=== PATIENT | male | born 1970 | race Caucasian/White ===

== ENCOUNTER 2025-05-06 06:28 | Observation (INO) ==
--- NOTE | 2025-04-04 15:26 | PAT Medication Instructions ---
Medication Instructions Date of Service April 04, 2025 Home Medications sertraline 25 mg tablet (Zoloft) 25 mg PO HS Take evening before surgery sertraline 25 mg tablet (Zoloft) 25 mg PO HS MORNING OF SURGERY: NOTHING TO EAT OR DRINK AFTER MIDNIGHT Other Notes If you have any questions please call us at [phone] or [phone] or [phone] or [phone]
--- NOTE | 2025-04-12 08:23 | Anesthesiology Consultation ---
Date of Service April 12, 2025 Assessment & Plan (1) Encounter for pre-operative examination: - PCP office visit 03/25/25 [facility]: "...Feels good. Mood is good on med. Getting left knee replaced next month with Dr. Hancock for ongoing pain...no murmur...Follow Up: Return in about 1 year..." - neuraxial anesthesia concerns: patient states has some hesitation as feels he had a painful injection with left knee arthroscopy in 2011. He is comfortable with ultimate discussion am DOS. We discussed general anesthesia and neuraxial anesthesia-he expresses comfort with anesthesiologist recommendation DOS. - Outpatient joint assessment: Patient is currently scheduled for inpatient pathway. If re-evaluated and patient/surgeon requests outpatient pathway, patient is acceptable candidate for outpatient joint program from anesthesia standpoint pending surgeon's office assessment of pt motivation/support/completion of same day joint program preop requirements. Chart Review Chart Review: Acceptable Risk for Surgery and Patient seen in Pre Admission Testing History Surgery Operation Date: 05/06/25 11:25 Proposed Procedures p Robotic Assisted Left Total Knee Arthroplasty - Boubacar Hancock, DO Height/Weight Height: 5 ft 11 in Weight: 104.1 kg Allergies Allergy/AdvReac Type Severity Reaction Status Date / Time No Known Allergies Allergy Mild Verified 04/04/25 08:41 Medications Home Medications Medication Instructions Recorded Confirmed Last Taken sertraline 25 mg tablet (Zoloft) 25 mg PO HS 10/30/19 04/04/25 Unknown Past Medical History Medical History (Updated 04/12/25 @ 08:25 by Danielle Akers PA-C) Depression History of COVID-19 (2021) resolved History of hepatitis A 1985 History of pneumonia 1985 severe, hospitalized and states "heart stopped", murmur developed after that episode Hx of bronchitis 2022 Hx of cardiac murmur developed after having pneumonia at 14 yrs old (1984). no cardio-states has not been detected since 2006 Osteoarthritis Right hand pain chronic, states has seen specialists without needed intervention Patient denies h/o stroke, seizures, heart attack, heart failure, DM, blood clots/DVTs or blood transfusions. Exercise / Class Metabolic Activity II 4-5 Yardwork/Stairs/Walk up hill (denies chest discomfort or shortness of breath with one flight of stairs) Past Family History Family History Other No family history of adverse response to anesthesia Past Surgical History Surgical History History of nasal surgery reconstructive surgery, childhood nasal fracture History of vasectomy Hx of arthroscopic knee surgery left/right Hx of colonoscopy Hx of wisdom tooth extraction Past Anesthesia History No Hx of Anesthesia Complications and No Family Hx of Anesthesia Complications History of PONV No Hx of PONV and No Hx of Motion Sickness Social History Smoking Status: Never smoker Do You Dip or Chew Tobacco: Yes (advised) Hx Alcohol Use: Yes Alcohol type: beer and hard liquor alcohol intake frequency: a few times a month Hx Substance Use: No substance use type: does not use Review of Systems Snoring, denies witnessed apneas. Patient denies chest pain, shortness of breath, dyspnea on exertion, reflux, fever, chills, cough, wheezing, or palpitations. Physical Exam Vital Signs Vitals BP 112/70 P 73 TEMP 98.2 SP02 95% on RA RESP 18 Physical Patient resting comfortably in chair in no acute distress, alert and oriented, responding appropriately throughout visit Full cervical extension range of motion without pain TMD 3.5 finger breadths Mallampati Score 3 Dentition: one crown, denies chipped or loose teeth, caps, implants or bridges Lungs: normal respiratory effort. Good air movement, clear throughout to auscultation, no adventitious breath sounds Cardiac: regular rate and rhythm, no murmurs noted Carotid arteries: negative bruit bilat Lab Results Anesthesia Preop Results Results Anesthesia Widget: WBC 5.13 K/ul (4.8-10.8) 04/12/25 Hgb 15.3 g/dl (14.0-18.0) 04/12/25 Hct 44.1 % (42.0-52.0) 04/12/25 Plt 240 K/uL (130-400) 04/12/25 Na 137 mmol/L (136-145) 04/12/25 K 4.3 mmol/L (3.5-5.1) 04/12/25 Cl 102 mmol/L (98-107) 04/12/25 CO2 30 mmol/L (21-32) 04/12/25 BUN 20 mg/dl (6-23) 04/12/25 Creat 1.15 mg/dl (0.6-1.4) 04/12/25 Glucose Level 97 mg/dl (70-99(Fasting)) 04/12/25 PT 10.3 Seconds (9.0-12.0) 04/12/25 PTT 29 Seconds (21-31) 04/12/25 INR 0.9 (0.9-1.1) 04/12/25 Blood Type A Positive 04/12/25 Antibody Screen NEGATIVE 04/12/25 Testing Electrocardiogram Date: 04/12/25 NSR, rate 60 bpm Chest X-Ray Date: 04/12/25 No acute findings.
--- NOTE | 2025-05-02 08:01 | History & Physical Report ---
Date of Service May 02, 2025 Assessment & Plan (1) Osteoarthritis of left knee: We will proceed with a left total knee arthroplasty. Postoperatively, he will be started on aspirin for DVT prophylaxis and kept overnight in the hospital for postop medical management. He plans to use [facility] therapy at discharge. History of Present Illness Chief Complaint: Osteoarthritis of the left knee. 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 He has been dealing with chronic worsening left knee pain and instability. I did a left knee arthroscopy on him about 10 years ago. He initially did okay, but unfortunately his knee pain returned. Now, he has a lot of instability of his knee. He says he can only walk a small distance before it starts becoming painful and swollen. I sent him for an MRI. The MRI showed advanced arthritis in the left knee. After failing conservative treatment, he has elected to proceed with a left total knee arthroplasty. 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 no cardio-states has not been detected since 2006 Surgical History Hx of colonoscopy History of vasectomy Hx of arthroscopic knee surgery left/right Hx of wisdom tooth extraction History of nasal surgery reconstructive surgery, childhood nasal fracture Family History Other No family history of adverse response to anesthesia Social History Smoking Status: Never smoker Tobacco Type: Smokeless Tobacco (Dip or Chew) Second Hand Exposure: No; Do You Dip or Chew Tobacco: Yes (advised); Hx Alcohol Use: Yes Alcohol type: beer and hard liquor Hx Substance Use: No Preferred Language: Thai Communication Ability: Effective Hearing Ability: Normal 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 Physical Exam On physical exam of the left knee, he has tenderness palpation of the distal medial femoral condyle and over the medial joint line. He has no deformity.. Constitutional WD/WN, vitals as above Eyes PERRL, conjunctivae normal, anicteric sclerae ENMT external ear and nose normal, oropharynx normal Neck trachea midline, no thyromegaly Respiratory normal respiratory effort Cardiovascular RRR, no murmur, no edema Gastrointestinal (Abdomen) normal bowel sounds, soft, nontender, no hepatosplenomegaly Psychiatric A+Ox3, euthymic affect Results & Data Results & Data Laboratory Results . Diagnostic Findings . PG Care Time/CCT Total # of Minutes Spent Total Time Spent with Patient: Total time spent is greater than 50% in coordination of care (as documented) at patient's floor/unit and/or counseling patient: Coding Level of Care Code None Diagnoses Osteoarthritis of left knee M17.12
[~2025-05-06 06:28] MED LIST: ROPIVACAINE 0.5% 5 MG/ML 30 ML VIAL ONE
--- NOTE | 2025-05-06 06:37 | History & Physical Bridge Note ---
Date of Service May 06, 2025 History & Physical Bridge Note I have examined the patient, reviewed the History & Physical and in the interval since the performance of the History & Physical I have noted the following changes of clinical significance: no changes noted
[2025-05-06] MEDS ORDERED: LIDOCAINE 2% 2 ML VIAL/AMP(20MG/ML) INFIL ONE (06:53)
[2025-05-06] MEDS ORDERED: ONDANSETRON INJ 2 MG/ML 2 ML VIAL ONE (06:53)
[2025-05-06] MEDS ORDERED: MIDAZOLAM HCL 1 MG/ML 2ML VIAL ONE (06:53)
[2025-05-06] MEDS ORDERED: PROPOFOL IV EMULSION 10 MG/ML 20 ML VIAL IV ONE ×3 (06:53→09:25)
[2025-05-06] MEDS: LR 60ML/HR IV SCH (07:01)
[2025-05-06] MEDS ORDERED: ATROPINE SULFATE 0.1 MG/ML 10ML SYR IV PRN (07:08)
[2025-05-06] MEDS ORDERED: PROMETHAZINE HCL 6.25 MG in SODIUM CHLORIDE 0.9% 50 ML IV PRN (07:08)
[2025-05-06] MEDS ORDERED: HYDROmorphone INJ 1 MG/ML SYRINGE IV PRN (07:08)
[2025-05-06] MEDS ORDERED: ONDANSETRON INJ 2 MG/ML 2 ML VIAL IV PRN ×2 (07:08→10:48)
[2025-05-06] MEDS: GABAPENTIN 900 MG DOSE PO SCH (07:10)
[2025-05-06] MEDS: dexAMETHasone**PF** 10 MG/ML VIAL IV SCH (07:10)
[2025-05-06] MEDS: ACETAMINOPHEN 500 MG TAB PO SCH ×2 (07:10→13:47)
[2025-05-06] MEDS: FAMOTIDINE 20 MG TAB PO SCH (07:10)
[2025-05-06] MEDS: TRANEXAMIC ACID 1,000 MG **IV Pre-op IV SCH (07:58)
[2025-05-06] MEDS ORDERED: KETAMINE HCL 10MG/ML SYR ONE (08:18)
[2025-05-06] MEDS ORDERED: PHENYLEPHRINE 100MCG/ML 5ML SYR ONE (08:32)
[2025-05-06] MEDS ORDERED: ePHEDrine sulfate 50 MG/5 ML SYR ONE (08:32)
[2025-05-06] MEDS: ROPIV 0.5% 246mg, Ketorolac 30mg, EPINEPHrine 0.5mg in NSS INFIL SCH (08:55)
[2025-05-06] MEDS: ORTHO JOINT ANESTHETIC ONE (08:55)
--- NOTE | 2025-05-06 09:33 | Operative Report ---
PG Post Operative Report Pre & Post Diagnosis Operation Date: 05/06/25 08:00 Pre-Op Diagnosis: Left Knee Arthritis Post-Op Diagnosis: Left Knee Arthritis I identified the patient and participated in the time-out.: Yes Procedure Operation Date: 05/06/25 08:00 Actual Procedures p Robotic Assisted Left Total Knee Arthroplasty(Left) - Boubacar Hancock DO Surgeon Boubacar Hancock DO [employer] Market Leader Lucero Gurrola PA-C Estimated Blood Loss 30 Findings Consistent with Post-Op Diagnosis Specimens Left femoral and tibial bone Description of Procedure Implants used: I used a Latonia Persona total knee arthroplasty system with a size 10 PS standard femur, F tibia, 32 patella, and a size 10 CPS polyethylene bearing. All components were press-fit into place. Colin arrived [facility] for the above procedure. He was seen in the preoperative holding area and the operative extremity was identified and signed. he was given a preoperative antibiotic, TXA, a spinal anesthetic and an adductor nerve block. He was taken back to the operating room and laid on the table in supine position. He was given basic sedation. The operative knee was then prepped and draped in sterile fashion. A timeout was done, and the patient and the operative extremity was properly identified. A midline incision was made directly over the patella. Dissection was taken down to the extensor mechanism. A medial parapatellar arthrotomy was used. The medial retinaculum was released and the fat pad was mostly excised. The knee wa s flexed and the ACL, PCL, and meniscus were removed. The alignment of the knee replacement was assisted with a Telepo robotic knee. The femoral array was pinned in the distal femur and the tibial array was pinned using a percutaneous technique in the upper shaft of the tibia. The robot was appropriately calibrated and the structure of the knee was mapped out. The components were then manipulated on the screen to account for any malalignment and to assist in gap balancing. Once I was happy with the placement of the components on the screen, a distal femoral cutting guide was brought in place. The distal femur was then resected. The femur measured to be a size 10. A 4-in-1 cutting block was then put into place by the robot and 2 peg holes were drilled. The 4-in-1 cutting block was then impacted into place and anterior, posterior, and chamfer cuts were made. The cutting block was then brought down to the tibia and pinned into place. The proximal tibia was then resected. The posterior aspect of the knee was then opened up and any additional meniscus fragments and osteophytes were removed. The tibia measured to be a size F. The tibial plate was then placed in the appropriate rotation and the tibia was drilled and punched. Trial components were then placed. The patella was then everted and 9 mm was resected off the posterior aspect of the patella. The patella measured to be a size 32. 3 peg holes were then drilled. A trial patella was placed. A size 10 CPS polyethylene insert was then trialed. The knee was brought through a full range of motion and felt to be stable. Trial components were then removed. The surrounding soft tissues were injected with 100 cc of an orthopedic pain control cocktail. All components were then press-fit into place. The final polyethylene insert was then snapped into place. The tourniquet was deflated. Hemostasis was obtained. A dilute betadyne lavage was then done for 3 minutes. The joint was then irrigated with normal saline solution. The medial parapatellar arthrotomy was then closed with #1 Vicryl suture. The skin was closed with 2-0 Vicryl, 3-0V lock suture, and Crystal Zipline. A soft compressive dressing was placed. He was then transferred to a hospital bed and taken to the postanesthesia care unit in stable condition. He tolerated the procedure well. Lucero Gurrola PA-C, was present for the entire procedure. He was critical for patient positioning, prepping, draping, retraction exposure, wound closure and application of sterile dressing. I attest to the content of the Intraoperative Record and any orders documented therein. Any exceptions are noted below.
--- NOTE | 2025-05-06 10:41 | XRay Report ---
XR knee LT 1 or 2V routine HISTORY: 54 years-old Male Surgical Post Op left knee arthroplasty COMPARISON: 09/12/2019 TECHNIQUE: 2 views of the left knee FINDINGS: Total joint arthroplasty with patellar resurfacing. Satisfactory alignment of the hardware with expec aakash postoperative soft tissue swelling and deep tissue air. Possible small bone fragment noted along the medial femoral condyle. IMPRESSION: Satisfactory alignment of the total joint arthroplasty. ACT 112: Negative or not required by law. The above report was generated using voice recognition software. It may contain grammatical, syntax o r spelling errors. Electronically signed by: Cooper Michael M.D. 05/06/2025 10:40 AM
[2025-05-06] MEDS ORDERED: NALOXONE HCL 0.4 MG/1 ML VIAL/CARP IV PRN (10:48)
[2025-05-06] MEDS ORDERED: MAGNESIUM HYDROXIDE SUSP 30 ML UDC PO PRN (10:48)
[2025-05-06] MEDS ORDERED: diphenhydrAMINE Capsule 25 MG CAP PO PRN (10:48)
[2025-05-06] MEDS ORDERED: METOCLOPRAMIDE HCL INJ 5 MG/ML 2 ML VIAL IV PRN (10:48)
--- NOTE | 2025-05-06 10:58 | Anesthesiology Progress Note ---
Date of Service May 06, 2025 Anesthesia Post Procedure Vital Signs Vital Signs: Temp Pulse Pulse Resp BP Pulse Ox O2 Del Method 05/06/25 10:30 36.5 C 68 21 140/89 96 Room Air 05/06/25 10:20 74 17 129/79 98 Room Air 05/06/25 10:10 71 18 114/89 98 Room Air 05/06/25 10:03 36.1 C L 71 16 109/83 97 Room Air 05/06/25 06:36 36.7 C 65 18 130/91 98 Room Air Pain Intensity Left Knee: Pain Intensity: 3 Transfer of Care Handoff Completed per policy Notes Mental Status: alert / awake / arousable and participated in evaluation Patient Amnestic to Procedure: Yes Nausea / Vomiting: adequately controlled Pain: adequately controlled Airway Patency, RR, SpO2: stable & adequate BP & HR: stable & adequate Hydration State: stable & adequate Anesthetic Complications: no major complications apparent and Pt Satisfied with anesthetic care
[2025-05-06] MEDS: KETOROLAC TROMETHAMINE 15 MG/ML VIAL IV SCH (11:48)
[2025-05-06] MEDS: SODIUM CHLORIDE 0.9% 1,000 ML IV SCH (11:51)
[2025-05-06] MEDS: SENNA 8.6 MG TAB PO SCH (20:24)
[2025-05-06] MEDS: DOCUSATE SODIUM 100 MG CAP PO SCH (20:24)
[2025-05-06] MEDS: SERTRALINE HCL 50 MG TABLET PO SCH (20:25)
[2025-05-06] MEDS: ASPIRIN 81 MG ECTAB PO SCH (20:25)
[2025-05-07 07:21] VITALS: PULSE 65; RESP 18; TEMP 97.5; O2SAT 97
[2025-05-07] MEDS: MULTIVITAMIN TAB PO SCH (07:26)
--- NOTE | 2025-05-07 09:33 | Orthopedic Progress Note ---
Date of Service May 07, 2025 Assessment & Plan (1) Status post total left knee replacement: * Continue Current Treatment * Disposition: home * Daily treatment: Physical Therapy/ Occupational Therapy per protocol * Weight bearing status: WBAT * Continue to monitor for ABLA * Pain control * DVT prophylaxis, ASA * Office/hospital f/u 2 weeks for progress check and staple/suture removal * Plan for discharge today pending PT/OT clearance Subjective . Active Problems: S/p left TKA POD 1 54 y/o male s/p left TKA. Doing well overall, pain managed and improved function. Denies fever/chills, chest pain/SOB, nausea/vomiting. Otherwise no complaints. Review of Systems All systems reviewed & are unremarkable except as noted in HPI & below. Physical Exam . * General: Alert and oriented, no acute distress * Constitutional: well-developed, well-nourished. * Respiratory: Normal respiratory effort, no distress * Gastrointestinal: No tenderness to palpation, no rigidity or guarding. * Skin: No rash or lesion. * Neurologic: Grossly normal * Musculoskeletal: left knee surgical dressing CDI, not removed for exam. Otherwise no obvious deformity or overlying skin changes RLE. Diffuse TTP distal thigh and knee region. Otherwise no specific tenderness of proximal thigh, lower leg, foot/ankle. AROM knee flexion 100 degrees. AROM foot/ankle intact. Sensation intact plantar/dorsal foot. Brisk capillary refill. Results & Data Results & Data Laboratory Results . Diagnostic Findings . Knee X-Ray 05/06/25 10:04 XR knee LT 1 or 2V routine HISTORY: 54 years-old Male Surgical Post Op left knee arthroplasty COMPARISON: 09/12/2019 TECHNIQUE: 2 views of the left knee FINDINGS: Total joint arthroplasty with patellar resurfacing. Satisfactory alignment of the hardware with expected postoperative soft tissue swelling and deep tissue air. Possible small bone fragment noted along the medial femoral condyle. IMPRESSION: Satisfactory alignment of the total joint arthroplasty. ACT 112: Negative or not required by law. The above report was generated using voice recognition software. It may contain grammatical, syntax or spelling errors. Electronically signed by: Cooper Michael M.D. 05/06/2025 10:40 AM PG Care Time/CCT Total # of Minutes Spent Total Time Spent with Patient: Total time spent is greater than 50% in coordination of care (as documented) at patient's floor/unit and/or counseling patient: Coding Level of Care Code 79072 Post Operative Follow-Up Diagnoses Status post total left knee replacement Z96.652
[2025-05-07 09:57] VITALS: BP 128/80
== END 2025-05-07 10:54 | disposition home or self-care (01) ==
LOC: ASU 06:28 → 3N 06:28